=== PATIENT | male | born 1960 | race African-American/Black ===

== ENCOUNTER 2022-10-19 16:20 | Inpatient (IN) | payer BC ==
[~2022-10-19] VITALS: Ht 167.6 cm; Wt 76.7 kg
[2022-10-19] MEDS ORDERED: FUROSEMIDE 40MG/4ML VIAL IV ONE (16:30)
[2022-10-19] MEDS ORDERED: ASPIRIN 81MG TABLET PO ONE (16:30)
[2022-10-19 17:15] LABS: BG BASE EXCESS 1.2 mmol/L (-2.0-2.0); BG CARBOXYHEMOGLOBIN 0.9 % (0.5-1.5); BG DEOXYHEMOGLOBIN 0.3 % (0.0-5.0); BG FRACTION INSPIRED OXYGEN 100; BG HCO3 ACT 25.2 mmol/L (22.0-26.0); BG METHEMOGLOBIN 0.7 % (0.0-1.5); BG OXYGEN SATURATION 99.7 % (92.0-98.5); BG OXYHEMOGLOBIN 98.1 % (94.0-97.0); BG PCO2 38.2 mmHg (35.0-45.0); BG PH 7.438 (7.350-7.450); BG SAMPLE SITE RIGHT RADIAL; BG TOTAL HEMOGLOBIN 13.8 g/dL (12.0-18.0); BG TOTAL RESPIRATORY RATE 29 b/min; BG VENT MODE MASK - BIPAP
[2022-10-19 17:56] LABS: BASOPHILS % 0.5 % (0.0-2.0); EOSINOPHILS % 1.6 % (0.0-5.0); HEMATOCRIT. 39.6 % (42.0-52.0); HEMOGLOBIN. 12.5 g/dL (14.0-18.0); LYMPHOCYTES % 17.9 % (20.0-50.0); MEAN CORPUSCULAR HEMOGLOBIN 23.4 pg (28.0-32.0); MEAN CORPUSCULAR VOLUME 74.1 fL (80.0-94.0); MEAN PLATELET VOLUME 10.5 fl (7.4-10.4); MONOCYTES % 9.2 % (2.0-8.0); NEUTROPHILS % 70.8 % (40.0-76.0); PLATELET 163 x1000/uL (130-400); RED BLOOD CELL COUNT 5.34 mill/uL (4.7-6.1); RED CELL DISTRIBUTION WIDTH 15.1 % (11.6-14.6)
[2022-10-19 18:11] LABS: CHLORIDE 111 mEq/L (98-107)
[2022-10-19] MEDS ORDERED: ONDANSETRON HCL 4MG/2ML INJ IV PRN (19:30)
[2022-10-19] MEDS ORDERED: NITROGLYCERIN 0.4MG TABLET SL SL PRN (19:30)
[2022-10-19] MEDS ORDERED: ZOLPIDEM TARTRATE 5MG TABLET PO PRN (19:30)
[2022-10-19] MEDS ORDERED: IPRATROPIUM/ALBUTEROL 0.5-3(2.5)MG/3ML NEB NEB PRN (19:30)
[2022-10-19] MEDS ORDERED: GUAIFENESIN 200MG/10ML SUGAR FREE UDC PO PRN (19:30)
[2022-10-19] MEDS ORDERED: DOCUSATE SODIUM 100MG CAPSULE PO PRN (19:30)
[2022-10-19] MEDS ORDERED: CLONIDINE 0.1MG TABLET PO PRN (19:30)
[2022-10-19] MEDS ORDERED: ACETAMINOPHEN 325MG TABLET PO PRN ×2 (19:30)
[2022-10-19] MEDS ORDERED: MAGNESIUM/ALUMINUM HYDROXIDE/SIMETHICONE 30ML UDC PO PRN (19:30)
[2022-10-19] MEDS: ENOXAPARIN 40MG/0.4ML SYR SUBCUT SCH (20:00)
[2022-10-19 20:46] LABS: T4 FREE 1.38 ng/dL (0.76-1.46)
[2022-10-19] MEDS: ASCORBIC ACID 500 MG TABLET PO SCH (21:00)
[2022-10-19] MEDS ORDERED: GUAIFENESIN 600MG ER TABLET PO SCH (21:00)
[2022-10-19] MEDS: FUROSEMIDE 40MG/4ML VIAL IVP SCH (21:00)
[2022-10-19] MEDS: SPIRONOLACTONE 25MG TABLET PO SCH (21:00)
[2022-10-19 21:06] LABS: FOLIC ACID (FOLATE) SERUM 14.2 ng/mL (>5.38)
[2022-10-19 23:23] LABS: CREATINE KINASE MB FRACTION 4.2 ng/mL (0.5-3.6)
[2022-10-20] VITALS (9 sets, daily range): BP systolic 119–158; BP diastolic 77–110
[2022-10-20] MEDS ORDERED: FUROSEMIDE 40MG/4ML VIAL IV NR (01:15)
[2022-10-20 06:31] LABS: PHOSPHORUS 3.7 mg/dL (2.5-4.9)
[2022-10-20 07:27] LABS: BASOPHILS % 0.9 % (0.0-2.0); EOSINOPHILS % 1.2 % (0.0-5.0); HEMATOCRIT. 41.9 % (42.0-52.0); HEMOGLOBIN. 13.4 g/dL (14.0-18.0); LYMPHOCYTES % 16.2 % (20.0-50.0); MEAN CORPUSCULAR HEMOGLOBIN 23.5 pg (28.0-32.0); MEAN CORPUSCULAR VOLUME 73.6 fL (80.0-94.0); MONOCYTES % 7.5 % (2.0-8.0); NEUTROPHILS % 74.2 % (40.0-76.0); RED BLOOD CELL COUNT 5.69 mill/uL (4.7-6.1); RED CELL DISTRIBUTION WIDTH 15.5 % (11.6-14.6)
[2022-10-20 08:44] LABS: PLATELET ESTIMATE NORMAL
[2022-10-20 08:46] LABS: PLATELET 205 x1000/uL (130-400)
[2022-10-20] MEDS ORDERED: ASPIRIN 325MG EC TABLET PO SCH (09:00)
[2022-10-20] MEDS ORDERED: LOSARTAN POTASSIUM 50 MG TABLET PO SCH (09:00)
[2022-10-20] MEDS: FUROSEMIDE 40MG/4ML VIAL IVP SCH ×2 (09:28→21:20)
[2022-10-20] MEDS: FAMOTIDINE 20MG TABLET PO SCH (09:28)
[2022-10-20] MEDS ORDERED: MAGNESIUM 4 G PREMIX 100 ML IV SCH (12:00)
[2022-10-20] MEDS: ZINC SULFATE 220 MG ( 50 ) CAPSULE PO SCH (13:34)
[2022-10-20] MEDS: SPIRONOLACTONE 25MG TABLET PO SCH ×2 (13:34→21:21)
[2022-10-20] MEDS: ASCORBIC ACID 500 MG TABLET PO SCH ×2 (13:34→21:21)
[2022-10-20] MEDS: ENOXAPARIN 40MG/0.4ML SYR SUBCUT SCH (21:20)
[2022-10-21] VITALS (12 sets, daily range): BP systolic 107–141; BP diastolic 49–102
[2022-10-21 07:39] LABS: PHOSPHORUS 3.7 mg/dL (2.5-4.9)
[2022-10-21] MEDS: SPIRONOLACTONE 25MG TABLET PO SCH ×2 (08:31→20:16)
[2022-10-21] MEDS: ASCORBIC ACID 500 MG TABLET PO SCH ×2 (08:31→20:16)
[2022-10-21] MEDS: FUROSEMIDE 40MG/4ML VIAL IVP SCH ×2 (08:32→20:16)
[2022-10-21] MEDS: FAMOTIDINE 20MG TABLET PO SCH (08:32)
[2022-10-21] MEDS: ASPIRIN 81MG EC TABLET PO SCH (08:32)
[2022-10-21] MEDS: ZINC SULFATE 220 MG ( 50 ) CAPSULE PO SCH (08:32)
[2022-10-21] MEDS ORDERED: POTASSIUM CHLORIDE 20MEQ TABLET SR PO NR (10:15)
[2022-10-21] MEDS: CARVEDILOL 6.25 MG TABLET PO SCH (20:16)
[2022-10-21] MEDS: ATORVASTATIN CALCIUM 40MG TABLET PO SCH (20:16)
[2022-10-21] MEDS: ENOXAPARIN 40MG/0.4ML SYR SUBCUT SCH (20:17)
[2022-10-22] VITALS (11 sets, daily range): BP systolic 97–161; BP diastolic 67–93
[2022-10-22] MEDS: SPIRONOLACTONE 25MG TABLET PO SCH ×2 (08:25→20:57)
[2022-10-22] MEDS: CARVEDILOL 6.25 MG TABLET PO SCH ×2 (08:25→20:57)
[2022-10-22] MEDS: ASPIRIN 81MG EC TABLET PO SCH (08:25)
[2022-10-22] MEDS: ASCORBIC ACID 500 MG TABLET PO SCH ×2 (08:25→20:57)
[2022-10-22] MEDS: ZINC SULFATE 220 MG ( 50 ) CAPSULE PO SCH (08:25)
[2022-10-22] MEDS: FUROSEMIDE 40MG/4ML VIAL IVP SCH ×2 (08:25→20:57)
[2022-10-22] MEDS: FAMOTIDINE 20MG TABLET PO SCH (08:26)
[2022-10-22] MEDS: ISOSORBIDE DINITRATE 10MG TABLET PO SCH ×2 (13:04→16:23)
[2022-10-22] MEDS: HYDRALAZINE HCL 10MG TABLET PO SCH ×2 (13:04→22:47)
[2022-10-22] MEDS: ATORVASTATIN CALCIUM 40MG TABLET PO SCH (20:57)
[2022-10-22] MEDS: ENOXAPARIN 40MG/0.4ML SYR SUBCUT SCH (20:58)
[2022-10-23] VITALS (11 sets, daily range): BP systolic 103–143; BP diastolic 64–100
[2022-10-23 05:55] LABS: BASOPHILS % 0.9 % (0.0-2.0); EOSINOPHILS % 2.4 % (0.0-5.0); HEMATOCRIT. 39.8 % (42.0-52.0); HEMOGLOBIN. 12.5 g/dL (14.0-18.0); MEAN CORPUSCULAR HEMOGLOBIN 23.2 pg (28.0-32.0); MEAN CORPUSCULAR VOLUME 73.7 fL (80.0-94.0); MEAN PLATELET VOLUME 10.2 fl (7.4-10.4); NEUTROPHILS % 62.7 % (40.0-76.0); PLATELET 186 x1000/uL (130-400); RED CELL DISTRIBUTION WIDTH 15.8 % (11.6-14.6)
[2022-10-23 06:31] LABS: CHLORIDE 104 mEq/L (98-107)
[2022-10-23 06:38] LABS: PHOSPHORUS 3.2 mg/dL (2.5-4.9)
[2022-10-23] MEDS: HYDRALAZINE HCL 10MG TABLET PO SCH ×3 (06:42→21:20)
[2022-10-23] MEDS: ISOSORBIDE DINITRATE 10MG TABLET PO SCH ×3 (09:00→17:26)
[2022-10-23] MEDS: CARVEDILOL 6.25 MG TABLET PO SCH ×2 (09:00→21:21)
[2022-10-23] MEDS: ASCORBIC ACID 500 MG TABLET PO SCH ×2 (09:11→21:21)
[2022-10-23] MEDS: ASPIRIN 81MG EC TABLET PO SCH (09:11)
[2022-10-23] MEDS: ZINC SULFATE 220 MG ( 50 ) CAPSULE PO SCH (09:11)
[2022-10-23] MEDS: FUROSEMIDE 40MG/4ML VIAL IVP SCH ×2 (09:11→21:20)
[2022-10-23] MEDS: FAMOTIDINE 20MG TABLET PO SCH (09:11)
[2022-10-23] MEDS: SPIRONOLACTONE 25MG TABLET PO SCH ×2 (09:26→21:22)
[2022-10-23] MEDS ORDERED: FAMO20TA8 PO (11:31)
[2022-10-23] MEDS ORDERED: ISOS10TA2 PO (11:31)
[2022-10-23] MEDS ORDERED: ASPI-1406 PO (11:31)
[2022-10-23] MEDS ORDERED: FURO-151 MT (11:31)
[2022-10-23] MEDS ORDERED: COR6 PO (11:31)
[2022-10-23] MEDS ORDERED: LIP40 PO (11:31)
[2022-10-23] MEDS ORDERED: SPIR25TA PO (11:31)
[2022-10-23] MEDS ORDERED: IODIXANOL 320MG/ML 100 ML BOTTLE IV ONE (13:08)
[2022-10-23] MEDS ORDERED: HEPARIN 1000 UNITS/ML 10ML ONE (13:08)
[2022-10-23] MEDS ORDERED: VERAPAMIL HCL 2.5 MG/1 ML 2ML VIAL IV ONE ×2 (13:08→13:12)
[2022-10-23] MEDS ORDERED: LIDOCAINE HCL/PF 1% 10 MG/ML 5ML VIAL ONE (13:08)
[2022-10-23] MEDS ORDERED: DIPHENHYDRAMINE 50MG/ML VIAL ONE (13:11)
[2022-10-23] MEDS ORDERED: FENTANYL CITRATE/PF 50MCG/ML 2ML VIAL ONE (13:20)
[2022-10-23] MEDS ORDERED: MIDAZOLAM HCL 2 MG/2 ML VIAL ONE (13:20)
[2022-10-23] MEDS ORDERED: ATROPINE SULFATE 1MG/10ML SYR IV PRN (14:30)
[2022-10-23] MEDS ORDERED: ACETAMINOPHEN 325MG TABLET PO PRN (14:30)
[2022-10-23] MEDS: ENOXAPARIN 40MG/0.4ML SYR SUBCUT SCH (21:20)
[2022-10-23] MEDS: ATORVASTATIN CALCIUM 40MG TABLET PO SCH (21:20)
[2022-10-24] VITALS (7 sets, daily range): BP systolic 95–190; BP diastolic 68–84
[2022-10-24] MEDS: HYDRALAZINE HCL 10MG TABLET PO SCH (05:08)
[2022-10-24 05:34] LABS: BASOPHILS % 1.2 % (0.0-2.0); EOSINOPHILS % 2.1 % (0.0-5.0); HEMATOCRIT. 37.4 % (42.0-52.0); HEMOGLOBIN. 11.8 g/dL (14.0-18.0); LYMPHOCYTES % 27.3 % (20.0-50.0); MEAN CORPUSCULAR VOLUME 72.7 fL (80.0-94.0); MEAN PLATELET VOLUME 10.6 fl (7.4-10.4); MONOCYTES % 9.6 % (2.0-8.0); NEUTROPHILS % 59.8 % (40.0-76.0); PLATELET 192 x1000/uL (130-400); RED BLOOD CELL COUNT 5.15 mill/uL (4.7-6.1); RED CELL DISTRIBUTION WIDTH 15.7 % (11.6-14.6)
[2022-10-24] MEDS: ASCORBIC ACID 500 MG TABLET PO SCH (08:15)
[2022-10-24] MEDS: FAMOTIDINE 20MG TABLET PO SCH (08:15)
[2022-10-24] MEDS: ZINC SULFATE 220 MG ( 50 ) CAPSULE PO SCH (08:15)
[2022-10-24] MEDS: FUROSEMIDE 40MG/4ML VIAL IVP SCH (08:15)
[2022-10-24] MEDS: SPIRONOLACTONE 25MG TABLET PO SCH (08:16)
[2022-10-24] MEDS: ISOSORBIDE DINITRATE 10MG TABLET PO SCH (08:16)
[2022-10-24] MEDS: ASPIRIN 81MG EC TABLET PO SCH (08:16)
[2022-10-24] MEDS: CARVEDILOL 6.25 MG TABLET PO SCH (08:16)
[2022-10-24] MEDS ORDERED: ENOXAPARIN 80MG/0.8ML SYR SUBCUT NR (08:30)
[2022-10-24] MEDS ORDERED: HYDRALAZINE 20MG/ML VIAL IV PRN (09:45)
[2022-10-24 10:35] LABS: INR 1.2; PROTHROMBIN TIME 12.4 sec (9.6-11.0)
[2022-10-24] MEDS ORDERED: HYDRALAZINE HCL 50MG TABLET PO SCH (14:00)
[2022-10-25] MEDS ORDERED: FUROSEMIDE 40MG TABLET PO SCH (09:00)
== END 2022-10-24 12:09 | disposition home or self-care (01) | DRG 280 ==
LOC: ER 16:20 → MICUNO 19:24 → SUPCPDRO 19:24 → EDBEDREQTM 19:49 → EDBEDREQ 19:49
PROVIDERS: ADMIT Internal Medicine; ATTEND Internal Medicine
PROC: 5A09357 Assistance with Respiratory Ventilation, Less than 24 Consecutive Hours, Continuous Positive Airway Pressure (ICD-10-PCS; 2022-10-19)
PROC: 5A09357 Assistance with Respiratory Ventilation, Less than 24 Consecutive Hours, Continuous Positive Airway Pressure (ICD-10-PCS; 2022-10-20)
PROC: 4A023N7 Measurement of Cardiac Sampling and Pressure, Left Heart, Percutaneous Approach (ICD-10-PCS; principal; 2022-10-23)
PROC: B211YZZ Fluoroscopy of Multiple Coronary Arteries using Other Contrast (ICD-10-PCS; 2022-10-23)
DX: I13.0 Hypertensive heart and chronic kidney disease with heart failure and stage 1 through stage 4 chronic kidney disease, or unspecified chronic kidney disease (principal); I50.21 Acute systolic (congestive) heart failure; I21.A1 Myocardial infarction type 2; J96.01 Acute respiratory failure with hypoxia; N17.0 Acute kidney failure with tubular necrosis; E44.0 Moderate protein-calorie malnutrition; L97.919 Non-pressure chronic ulcer of unspecified part of right lower leg with unspecified severity; I42.8 Other cardiomyopathies; D63.8 Anemia in other chronic diseases classified elsewhere; E83.51 Hypocalcemia; I87.8 Other specified disorders of veins; N18.9 Chronic kidney disease, unspecified; I25.10 Atherosclerotic heart disease of native coronary artery without angina pectoris; Z79.899 Other long term (current) drug therapy; Z68.25 Body mass index [BMI] 25.0-25.9, adult
CPT/HCPCS: 36415; 36600; 71045; 76770; 80048; 80053; 80061; 82375; 82550; 82553; 82607; 82746; 82805; 83036; 83540; 83550; 83735; 83880; 84100; 84145; 84439; 84443; 84484; 85025; 85379; 93005; 93306; 93458; 93970; 94660; 99291; C1769; C1887; C1893; J1200; J1644; J1650; J1940; J2250; J3010; J3475; J3490; Q9967